=== PATIENT | female | born 1995 | race African-American/Black ===

== ENCOUNTER 2016-05-11 09:47 | Emergency (ER) | payer SELFPAY ==
[~2016-05-11] VITALS: Ht 165.1 cm; Wt 113.4 kg
--- NOTE | 2016-05-11 10:56 | PHYS DOC ---
Past Medical History Past Medical History: No Pertinent History Past Surgical History: Other Additional Past Surgical Histo: bilateral knee surgeries with bolts and plates Alcohol Use: None Drug Use: Marijuana Adult General Chief Complaint Chief Complaint: VAGINAL BLEEDING HPI HPI Patient is a 20 year old female who presents with lower abdominal pain and low back pain and setting of possible . Patient reports for the past 2 weeks she has had intermittent mild aching lower abdominal and lower back pain. She is not having any pain now. She also reports a small amount of vaginal bleeding today. She said she had an abnormal menstrual period starting on May 02. She took a test at home that was negative, and then a week later took another one that was positive (this was a few days ago). If she is indeed she would be with 1 prior miscarriage. She has not taken anything for symptoms. Review of Systems Review of Systems Constitutional: Denies fever or chills Eyes: Denies change in visual acuity or eye pain HENT: Denies nasal congestion or sore throat Respiratory: Denies cough or shortness of breath Cardiovascular: Denies chest pain GI: Lower abdominal pain. Denies nausea, vomiting, bloody stools or diarrhea : Vaginal bleeding. Denies dysuria or hematuria Musculoskeletal: Low back pain. Denies joint pain Integument: Denies rash or skin lesions Neurologic: Denies headache, focal weakness or sensory changes Allergies Allergies Allergies Coded Allergies Type Severity Reaction Last Updated Verified No Known Drug Allergies 02/08/14 No Physical Exam Physical Exam Constitutional: Well developed, well nourished, no acute distress, non-toxic appearance HENT: Normocephalic, atraumatic, bilateral external ears normal Eyes: EOMI, conjunctiva normal, no discharge Neck: Normal range of motion, no stridor Cardiovascular: Heart rate normal, regular rhythm, no murmur Lungs & Thorax: Bilateral breath sounds clear to auscultation Abdomen: Bowel sounds normal, soft, non-distended, no TTP : Scant dark blood in vault, no discharge, no CMT, no adnexal tenderness Skin: Warm, dry, no erythema, no rash Back: No tenderness Extremities: No obvious deformity, no edema Neurologic: Alert and oriented X 3, no gross deficits noted Current Patient Data Vital Signs Vital Signs Date Time Temp Pulse Resp B/P Pulse Ox O2 Delivery O2 Flow Rate FiO2 05/11/16 14:15 78 16 134/80 99 Room Air 05/11/16 10:05 98.3 98.3 Lab Values Laboratory Tests Test 05/11/16 11:10 05/11/16 11:20 05/11/16 11:27 Urine Collection Type Unknown Urine Color Yellow Urine Clarity Clear Urine pH 6.5 Urine Specific [place] 1.010 Urine Protein Negativemg/dL (NEG-TRACE) Urine Glucose (UA) Negativemg/dL (NEG) Urine Ketones (Stick) Negativemg/dL (NEG) Urine Blood Small (NEG) Urine Nitrite Negative (NEG) Urine Bilirubin Negative (NEG) Urine Urobilinogen Dipstick 1.0mg/dL (0.2 mg/dL) Urine Leukocyte Esterase Trace (NEG) Urine RBC Occ/HPF (0-2) Urine WBC Occ/HPF (0-4) Urine Squamous Epithelial Cells Mod/LPF Urine Bacteria Moderate/HPF (0-FEW) Urine Mucus Mod/LPF White Blood Count 5.3x10^3/uL (4.0-11.0) Red Blood Count 4.46x10^6/uL (3.50-5.40) Hemoglobin 12.6g/dL (12.0-15.5) Hematocrit 38.7% (36.0-47.0) Mean Corpuscular Volume 87fL (79-100) Mean Corpuscular Hemoglobin 28pg (25-35) Mean Corpuscular Hemoglobin Concent 33g/dL (31-37) Red Cell Distribution Width 13.9% (11.5-14.5) Platelet Count 288x10^3/uL (140-400) Neutrophils (%) (Auto) 52% (31-73) Lymphocytes (%) (Auto) 39% (24-48) Monocytes (%) (Auto) 7% (0-9) Eosinophils (%) (Auto) 1% (0-3) Basophils (%) (Auto) 1% (0-3) Neutrophils # (Auto) 2.8x10^3uL (1.8-7.7) Lymphocytes # (Auto) 2.0x10^3/uL (1.0-4.8) Monocytes # (Auto) 0.4x10^3/uL (0.0-1.1) Eosinophils # (Auto) 0.0x10^3/uL (0.0-0.7) Basophils # (Auto) 0.0x10^3/uL (0.0-0.2) POC Urine HCG, Qualitative Hcg negative (Negative) Maternal Serum HCG Beta Subunit < 1mIU/mL (0-6) Sodium Level 139mmol/L (136-145) Potassium Level 4.1mmol/L (3.5-5.1) Chloride Level 105mmol/L (98-107) Carbon Dioxide Level 26mmol/L (21-32) Anion Gap 8 (6-14) Blood Urea Nitrogen 10mg/dL (7-20) Creatinine 0.9mg/dL (0.6-1.0) Estimated GFR (Cockcroft-Gault) 96.6 BUN/Creatinine Ratio 11 (6-20) Glucose Level 91mg/dL (70-99) Calcium Level 9.1mg/dL (8.5-10.1) Total Bilirubin 0.8mg/dL (0.2-1.0) Aspartate Amino Transferase (AST) 15U/L (15-37) Alanine Aminotransferase (ALT) 21U/L (14-59) Alkaline Phosphatase 71U/L (46-116) Total Protein 8.0g/dL (6.4-8.2) Albumin 3.5g/dL (3.4-5.0) Albumin/Globulin Ratio 0.8 (1.0-1.7) L Laboratory Tests 05/11/16 11:20 Laboratory Tests 05/11/16 11:27 Microbiology 05/11/16 Wet Prep - Final, Complete 05/11/16 Urine Culture - Preliminary, Resulted 05/11/16 Urine Culture Result 1 (RAUL) - Preliminary, Resulted Microbiology 05/11/16 Wet Prep - Final, Complete EKG EKG [] Radiology/Procedures Radiology/Procedures Pelvic US: IMPRESSION: Thickened endometrium. However, no intrauterine gestational sac is seen at this point in time. This may represent a very early intrauterine (5 weeks or less) or a spontaneous . Therefore, recommend correlation with serial quantitative beta hCG studies. An ectopic has not been excluded. No free fluid or adnexal mass is seen otherwise. Course & Med Decision Making Course & Med Decision Making Pertinent Labs and Imaging studies reviewed. (See chart for details) Patient is 20-year-old female who presents with intermittent lower abdominal pain and lower back pain and setting of possible . Will check both urine and serum beta-hCG. Will also perform pelvic exam and obtain pelvic ultrasound. Patient declines need for acetaminophen at this time. Imaging results as above. Both urine and serum test negative. Discussed results with patient. Discussed need to follow-up with [employer]. Discharged with instructions for follow-up and return precautions. Dragon Disclaimer Dragon Disclaimer This electronic medical record was generated, in whole or in part, using a voice recognition dictation system. Departure Departure Impression: Primary Impression: Abnormal uterine bleeding Disposition: HOME, SELF-CARE Condition: STABLE Referrals: NO PCP (PCP) RODOLFO ISRAEL MD Patient Instructions: Abnormal Uterine Bleeding Additional Instructions: Thank you for allowing us to provide care today in the Emergency Department. Take the provided medication as directed. Schedule a follow up appointment with an ObGyn using the provided contact information. Return promptly to the Emergency Department if you develop any new or concerning symptoms. Scripts Naproxen 375 Mg [id number] Mg PO BID PRN PAIN #20 Prov:BJORN CARLISLE MD 05/11/16 BJORN CARLISLE MD May 11, 2016 10:56
[2016-05-11 11:29] LABS: BILIRUBIN,URINE NEGATIVE (NEG); GLUCOSE,URINE NEGATIVE (NEG); NITRITE,URINE NEGATIVE (NEG); PH,URINE 6.5; PROTEIN,URINE NEGATIVE (NEG-TRACE)
[2016-05-11 11:45] LABS: BACTERIA,URINE MODERATE /HPF (0-FEW); RBC,URINE OCC /HPF (0-2); SQUAMOUS EPITHELIAL CELL,UR MOD /LPF; WBC,URINE OCC /HPF (0-4)
[2016-05-11 11:49] LABS: CALCIUM 9.1 mg/dL (8.5-10.1); CREATININE 0.9 mg/dL (0.6-1.0); GFR 96.6; POTASSIUM 4.1 mmol/L (3.5-5.1)
[2016-05-11 11:49] LABS: BASO % 1 % (0-3); EOS % 1 % (0-3); HEMATOCRIT 38.7 % (36.0-47.0); HEMOGLOBIN 12.6 g/dL (12.0-15.5); LYMPH % 39 % (24-48); MEAN CORPUSCULAR HEMOGLOBIN 28 pg (25-35); MEAN CORPUSCULAR HGB CONC 33 g/dL (31-37); MEAN CORPUSCULAR VOLUME 87 fL (79-100); MONO % 7 % (0-9); NEUT % 52 % (31-73); PLATELET COUNT 288 x10^3/uL (140-400); RED BLOOD COUNT 4.46 x10^6/uL (3.50-5.40); RED CELL DISTRIBUTION WIDTH 13.9 % (11.5-14.5); WHITE BLOOD COUNT 5.3 x10^3/uL (4.0-11.0)
[2016-05-11 11:55] LABS: ALBUMIN 3.5 g/dL (3.4-5.0); ALBUMIN/GLOBULIN RATIO 0.8 (1.0-1.7); TOTAL BILIRUBIN 0.8 mg/dL (0.2-1.0)
--- NOTE | 2016-05-11 12:40 | RAD ---
Transabdominal sonography of the pelvis; OB ultrasound less than 14 weeks Clinical indications: Positive urine test. Vaginal bleeding. Findings: The uterus is anteverted in position. The longitudinal and AP and transverse dimensions of the uterus are 8.5 cm and 4.3 cm and 5.0 cm respectively. There is thickening of the endometrial canal measuring up to 20 mm. However no intrauterine gestational sac or fetus is seen at this point in time. The right ovary measures 2.4 cm and 2.5 cm and 2.2 cm in size and contains a 1.5 cm cyst. The left ovary measures 1.9 cm and 3.3 cm and 2.0 cm in size and is normal. No adnexal mass or free fluid is evident. IMPRESSION: Thickened endometrium. However, no intrauterine gestational sac is seen at this point in time. This may represent a very early intrauterine (5 weeks or less) or a spontaneous . Therefore, recommend correlation with serial quantitative beta hCG studies. An ectopic has not been excluded. No free fluid or adnexal mass is seen otherwise.
[2016-05-11] MEDS ORDERED: NAPR375T3 PO (13:53)
[2016-05-11 14:15] VITALS: BP 134/80
--- NOTE | 2016-05-13 16:29 | VNOTE ---
CALL BACK NOTE CALL BACK Microbiology 05/11/16 Wet Prep - Final, Complete 05/11/16 Urine Culture - Final, Complete 05/11/16 Urine Culture Result 1 (RAUL) - Final, Complete 05/11/16 Antimicrobic Susceptibility - Final, Complete Urine culture positive for infection. 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 Rx for Bactrim left at the front of the ED. TIM HELM APRN May 13, 2016 16:29
== END 2016-05-11 14:15 | disposition home or self-care (01) ==
LOC: ER 09:47
DX: N93.9 Abnormal uterine and vaginal bleeding, unspecified (principal); R10.30 Lower abdominal pain, unspecified; M54.5 Low back pain; F12.10 Cannabis abuse, uncomplicated
CPT/HCPCS: 36415; 76801; 80053; 81001; 81025; 84702; 85027; 86900; 86901; 87086; 87491; 87591; 99285; Q0111; 87186

== ENCOUNTER 2016-05-15 11:41 | Emergency (ER) | payer SELFPAY ==
[~2016-05-15] VITALS: Ht 165.1 cm; Wt 104.3 kg
[~2016-05-15 11:41] MED LIST: NAPR375T3 PO
[2016-05-15 12:11] LABS: BILIRUBIN,URINE SMALL (NEG); GLUCOSE,URINE NEGATIVE (NEG); NITRITE,URINE POSITIVE (NEG); PH,URINE 6.5; PROTEIN,URINE 100 mg/dL (NEG-TRACE)
[2016-05-15 12:25] LABS: BACTERIA,URINE MANY /HPF (0-FEW); RBC,URINE >40 /HPF (0-2); WBC,URINE OCC /HPF (0-4)
[2016-05-15 12:47] LABS: BASO % 1 % (0-3); EOS % 1 % (0-3); LYMPH # 1.9 x10^3/uL (1.0-4.8); LYMPH % 38 % (24-48); MEAN CORPUSCULAR HEMOGLOBIN 29 pg (25-35); MEAN CORPUSCULAR HGB CONC 32 g/dL (31-37); MEAN CORPUSCULAR VOLUME 88 fL (79-100); MONO % 8 % (0-9); NEUT % 52 % (31-73); PLATELET COUNT 253 x10^3/uL (140-400); RED BLOOD COUNT 3.86 x10^6/uL (3.50-5.40); RED CELL DISTRIBUTION WIDTH 13.6 % (11.5-14.5)
--- NOTE | 2016-05-15 12:48 | PHYS DOC ---
Past Medical History Past Medical History: No Pertinent History Past Surgical History: Other Additional Past Surgical Histo: bilateral knee surgeries with bolts and plates Alcohol Use: None Drug Use: None Social History Narrative: DENIES DRUG USE AT THIS TIME, HX MARIJUANA USE Adult General Chief Complaint Chief Complaint: VAGINAL BLEEDING HPI HPI This otherwise healthy 20-year-old female has ongoing vaginal bleeding since the . Patient was seen on the and had a negative urine and negative negative serum quantitative values for any . She had ultrasound that demonstrated a thickened endometrium but no gestational sac. She states since discharge she still having continued bleeding. She also claims mild suprapubic cramping. She denies any dizziness or lightheadedness. She denies any chest pain or shortness of breath. She states she's going through one pad approximately every other hour. She denies any dysuria or hematuria. Review of Systems Review of Systems Constitutional: Denies fever or chills [] Eyes: Denies change in visual acuity, redness, or eye pain [] HENT: Denies nasal congestion or sore throat [] Respiratory: Denies cough or shortness of breath [] Cardiovascular: No additional information not addressed in HPI [] GI: Denies abdominal pain, nausea, vomiting, bloody stools or diarrhea [] : Denies dysuria or hematuria [] Musculoskeletal: Denies back pain or joint pain [] Integument: Denies rash or skin lesions [] Neurologic: Denies headache, focal weakness or sensory changes [] Endocrine: Denies polyuria or polydipsia [] Allergies Allergies Allergies Coded Allergies Type Severity Reaction Last Updated Verified No Known Drug Allergies 02/08/14 No Physical Exam Physical Exam Constitutional: Well developed, well nourished, no acute distress, non-toxic appearance. [] HENT: Normocephalic, atraumatic, bilateral external ears normal, oropharynx moist, no oral exudates, nose normal. [] Eyes: PERRLA, EOMI, conjunctiva normal, no discharge. [] Neck: Normal range of motion, no tenderness, supple, no stridor. [] Cardiovascular:Heart rate regular rhythm, no murmur [] Lungs & Thorax: Bilateral breath sounds clear to auscultation [] Abdomen: Bowel sounds normal, soft, mild suprapubic tenderness, no masses, no pulsatile masses. [] Pelvic exam: Slightly open cervical os with noted bleeding that is ongoing. Skin: Warm, dry, no erythema, no rash. [] Back: No tenderness, no CVA tenderness. [] Extremities: No tenderness, no cyanosis, no clubbing, ROM intact, no edema. [] Neurologic: Alert and oriented X 3, normal motor function, normal sensory function, no focal deficits noted. [] Psychologic: Affect normal, judgement normal, mood normal. [] Current Patient Data Vital Signs Vital Signs Date Time Temp Pulse Resp B/P Pulse Ox O2 Delivery O2 Flow Rate FiO2 05/15/16 12:33 76 120/69 100 Room Air 05/15/16 11:55 98.2 18 98.2 Lab Values Laboratory Tests Test 05/15/16 11:54 05/15/16 11:58 05/15/16 12:30 Urine Collection Type Void Urine Color Red Urine Clarity Turbid Urine pH 6.5 Urine Specific [place] 1.025 Urine Protein 100mg/dL (NEG-TRACE) Urine Glucose (UA) Negativemg/dL (NEG) Urine Ketones (Stick) Tracemg/dL (NEG) Urine Blood Large (NEG) Urine Nitrite Positive (NEG) Urine Bilirubin Small (NEG) Urine Urobilinogen Dipstick 1.0mg/dL (0.2 mg/dL) Urine Leukocyte Esterase Moderate (NEG) Urine RBC >40/HPF (0-2) Urine WBC Occ/HPF (0-4) Urine Bacteria Many/HPF (0-FEW) POC Urine HCG, Qualitative Hcg negative (Negative) White Blood Count 5.0x10^3/uL (4.0-11.0) Red Blood Count 3.86x10^6/uL (3.50-5.40) Hemoglobin 11.0g/dL (12.0-15.5) L Hematocrit 34.0% (36.0-47.0) L Mean Corpuscular Volume 88fL (79-100) Mean Corpuscular Hemoglobin 29pg (25-35) Mean Corpuscular Hemoglobin Concent 32g/dL (31-37) Red Cell Distribution Width 13.6% (11.5-14.5) Platelet Count 253x10^3/uL (140-400) Neutrophils (%) (Auto) 52% (31-73) Lymphocytes (%) (Auto) 38% (24-48) Monocytes (%) (Auto) 8% (0-9) Eosinophils (%) (Auto) 1% (0-3) Basophils (%) (Auto) 1% (0-3) Neutrophils # (Auto) 2.6x10^3uL (1.8-7.7) Lymphocytes # (Auto) 1.9x10^3/uL (1.0-4.8) Monocytes # (Auto) 0.4x10^3/uL (0.0-1.1) Eosinophils # (Auto) 0.0x10^3/uL (0.0-0.7) Basophils # (Auto) 0.0x10^3/uL (0.0-0.2) Laboratory Tests 05/15/16 12:30 EKG EKG [] Radiology/Procedures Radiology/Procedures [] Course & Med Decision Making Course & Med Decision Making Pertinent Labs and Imaging studies reviewed. (See chart for details) This 20-year-old female will have CBC drawn to rule out any new changes with her hemoglobin level with her ongoing vaginal bleeding. I will be performing a pelvic exam as well. I will reconfirm today that she is not . She did state that she had a positive test at home so her vaginal bleeding could be due to a miscarriage. I will assess her cervix for any abnormal findings. I see no indication at this time to perform and repeat ultrasound as her last ultrasound did not demonstrate any findings other than a thickened endometrium. She was instructed to follow-up with a consumer insights intern last time and I will again be stressing this to her. Pelvic exam reveals continued bleeding from the cervical os. I discussed the need for the patient to obtain close follow-up with Dr. Che the consumer insights intern next several days. He stated the patient should be placed on iron supplementation and vitamins. I will also be prescribing her a course of antibiotic therapy for her urinary tract infection. Patient is not tachycardic and has quickly normal vital signs upon discharge. I advised her to come back if she has any worsening of her bleeding or develops any shortness of breath or dizziness. She is discharged without incident. Dragon Disclaimer Dragon Disclaimer This electronic medical record was generated, in whole or in part, using a voice recognition dictation system. Departure Departure Impression: Primary Impression: Abnormal uterine bleeding Additional Impression: UTI (urinary tract infection) Disposition: HOME, SELF-CARE Referrals: AMEENA CHE Jr, MD Patient Instructions: Uterine Bleeding, Dysfunctional, [id number] Additional Instructions: Please follow up with the OB doctor, Dr. Che, as instructed in the next 1-2 days. Return to the ER if you develop any shortness of breath or dizziness/ lightheadedness or any increase in bleeding. Take your medications as prescribed. Scripts Vits W-Ca,Fe,Fa(<1MG) ( Vitamins)1 Each Tablet1 Each PO DAILY # 10 Prov:JONY FOREMAN DO 05/15/16 Nitrofurantoin Monohyd/M-Cryst (Macrobid 100 Mg Capsule)100 Mg Capsule1 Cap PO BID #10 CAP Prov:JONY FOREMAN DO 05/15/16 Ferrous Sulfate 325 Mg [id number] Mg PO DAILY #10 Prov:JONY FOREMAN DO 05/15/16 Problem Qualifiers JONY FOREMAN DO May 15, 2016 12:48
[2016-05-15] MEDS ORDERED: NITR100C62 PO (13:36)
[2016-05-15] MEDS ORDERED: FERR-26 PO (13:36)
[2016-05-15] MEDS ORDERED: PREN1TAB58 PO (13:36)
[2016-05-15 13:51] VITALS: BP 129/81
--- NOTE | 2016-05-16 16:37 | VNOTE ---
CALL BACK NOTE CALL BACK Microbiology 05/15/16 Urine Culture - Preliminary, Resulted 05/15/16 Urine Culture Result 1 (RAUL) - Preliminary, Resulted Culture positive for Chlamydia, negative for Gonorrhea. Spoke with patient and Rx left at triage per patient request MARYURI MENDOZA APRN May 16, 2016 16:37
== END 2016-05-15 13:52 | disposition home or self-care (01) ==
LOC: ER 11:41
DX: N39.0 Urinary tract infection, site not specified (principal); N93.9 Abnormal uterine and vaginal bleeding, unspecified; F12.10 Cannabis abuse, uncomplicated; Z98.890 Other specified postprocedural states
CPT/HCPCS: 36415; 81001; 81025; 85027; 87086; 87186; 99284

== ENCOUNTER 2021-01-03 10:51 | Emergency (ER) | payer SELFPAY ==
[~2021-01-03] VITALS: Ht 167.6 cm; Wt 101.2 kg
[~2021-01-03 10:51] MED LIST changes: +FERR325T14 PO; +NAPR-695 PO; -NAPR375T3 PO; +NITR100C62 PO; +PREN1TAB58 PO
[2021-01-03 11:03] VITALS: BP 130/61
--- NOTE | 2021-01-03 11:19 | ED.ADGEN ---
Past Medical History Past Medical History: No Pertinent History Past Surgical History: Other Additional Past Surgical Histo: bilateral knee surgeries with bolts and plates Smoking Status: Never Smoker Alcohol Use: None Drug Use: None General Adult EDM: Chief Complaint: Congestion HPI: HPI: Patient is a 25-year-old female who arrives ambulatory to the emergency department complaint of 2-day history of cough with cold and congestion. Patient reports this is been ongoing now for 2 days and she has coughing fits which induced vomiting. Patient states in addition she has considerable congestion of her sinuses. Patient states in addition to this she is experienced chills and body aches. Patient states she was likely exposed to somebody who had a similar illness over the weekend however she has been inside since Saturday and continue to worsen. Despite this, the patient denies any history of chest pain or shortness of air. She further states she has not taken the coronavirus vaccines however she is giving this serious thought at this time. She is awake, alert and nontoxic-appearing Review of Systems: Review of Systems: Constitutional: Denies fever or chills. [] Eyes: Denies change in visual acuity. [] HENT: Reports nasal congestion and left ear discomfort. Denies sore throat. [] Respiratory: Reports cough. Denies shortness of breath. [] Cardiovascular: Denies chest pain or edema. [] GI: Reports vomiting. Denies abdominal pain, nausea, bloody stools or diarrhea. [] : Denies dysuria. [] Musculoskeletal: Reports body aches. Denies back pain or joint pain. [] Integument: Denies rash. [] Neurologic: Denies headache, focal weakness or sensory changes. [] Endocrine: Denies polyuria or polydipsia. [] Lymphatic: Denies swollen glands. [] Psychiatric: Denies depression or anxiety. [] Family History: Family History: Noncontributory Allergies: Allergies: Allergies Coded Allergies Type Severity Reaction Last Updated Verified No Known Drug Allergies 02/08/14 No Physical Exam: PE: Constitutional: Well developed, well nourished, no acute distress, non-toxic appearance. [] HENT: Normocephalic, atraumatic, bilateral external ears normal, oropharynx moist, no oral exudates, nose normal. [] Eyes: PERRLA, EOMI, conjunctiva normal, no discharge. [] Neck: Normal range of motion, no tenderness, supple, no stridor. [] Cardiovascular:Heart rate regular rhythm, no murmur [] Lungs & Thorax: Bilateral breath sounds clear to auscultation [] Abdomen: Bowel sounds normal, soft, no tenderness, no masses, no pulsatile masses. [] Skin: Warm, dry, no erythema, no rash. [] Back: No tenderness, no CVA tenderness. [] Extremities: No tenderness, no cyanosis, no clubbing, ROM intact, no edema. [] Neurologic: Alert and oriented X 3, normal motor function, normal sensory fun ction, no focal deficits noted. [] Psychologic: Affect normal, judgement normal, mood normal. [] Current Patient Data: Vital Signs: Vital Signs Date Time Temp Pulse Resp B/P (MAP) Pulse Ox O2 Delivery O2 Flow Rate FiO2 01/03/21 11:03 98.1 67 17 130/61 (84) 100 Room Air 98.1 EKG: EKG: [] Heart Score: C/O Chest Pain: No Risk Factors: Risk Factors: DM, Current or recent (<one month) smoker, HTN, HLP, family history of CAD, obesity. Risk Scores: Score 0 - 3: 2.5% MACE over next 6 weeks - Discharge Home Score 4 - 6: 20.3% MACE over next 6 weeks - Admit for Clinical Observation Score 7 - 10: 72.7% MACE over next 6 weeks - Early Invasive Strategies Radiology/Procedures: Radiology/Procedures: [] Course & Med Decision Making: Course & Med Decision Making Pertinent Labs and Imaging studies reviewed. (See chart for details) The patient remains awake, alert and in no acute distress. Patient does fit the constellation of symptoms that would likely predict possible Covid infection. Nonetheless the patient does have symptoms that would also mirror that of a traditional upper respiratory infection. I advised patient to quarantine until those results are returned as a relates to her Covid assay. Moreover advised that she return to the emergency department any new chest pain or shortness of air. The patient understands and has agreed to do so. She is nontoxic- appearing and resting comfortably. She stable for discharge. Dragon Disclaimer: Maggie Disclaimer: This electronic medical record was generated, in whole or in part, using a voice recognition dictation system. Departure Departure Impression: Primary Impression: Upper respiratory infection Additional Impression: Person under investigation for COVID-19 Disposition: HOME / SELF CARE / HOMELESS Condition: STABLE Referrals: NO PCP (PCP) Patient Instructions: Upper Respiratory Infection, Adult Scripts Benzonatate (TESSALON PERLE) 100 Mg Capsule 1 CAP PO TID for cough, #21 CAP Prov: CHARLOTTE FOLEY DO 01/03/21 Prednisone (PREDNISONE) 50 Mg Tablet 1 TAB PO DAILY for 5 Days, #5 TAB Prov: CHARLOTTE FOLEY DO 01/03/21 Albuterol Sulfate (PROAIR HFA INHALER) 8.5 Gm Hfa.aer.ad 2 PUFF IH PRN Q4-6HRS PRN for wheezing for 21 Days, #1 INHALER 0 Refills Prov: CHARLOTTE FOLEY DO 01/03/21 Problem Qualifiers CHARLOTTE FOLEY DO Jan 03, 2021 11:19
[2021-01-03] MEDS ORDERED: ALBU2.5V8 IH (11:32)
[2021-01-03] MEDS ORDERED: PRED50TA PO (11:32)
[2021-01-03] MEDS ORDERED: BENZ100C PO (11:32)
--- NOTE | 2021-01-03 15:17 | NUR ---
IP: Attempted to notify patient of negative COVID19 test result. Voicemail message left to please return call at number provided.
--- NOTE | 2021-01-04 07:57 | NUR ---
IP: Patient notified of negative COVID19 test result.
== END 2021-01-03 11:40 | disposition home or self-care (01) ==
LOC: ER 10:51
DX: J06.9 Acute upper respiratory infection, unspecified (principal); Z20.822 Contact with and (suspected) exposure to COVID-19
CPT/HCPCS: 87426; 99283; U0003; U0005

== ENCOUNTER 2021-05-27 08:35 | Emergency (ER) | payer OTHER ==
[~2021-05-27] VITALS: Ht 165.1 cm; Wt 90.9 kg
[~2021-05-27 08:35] MED LIST changes: +ALBU2.5V8 IH; +BENZ100C PO; +PRED50TA PO
[2021-05-27 08:50] VITALS: BP 129/75
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
[2021-05-27] MEDS ORDERED: ONDANSETRON ODT 4 MG TAB.RAPDIS. PO ONE (09:30)
[2021-05-27] MEDS ORDERED: ORPHENADRINE CITRATE 60 MG/2 ML VIAL. IM ONE (10:30)
[2021-05-27] MEDS ORDERED: KETOROLAC 60 MG/2 ML VIAL. IM ONE (10:30)
[2021-05-27] MEDS ORDERED: ONDA4TAB12 PO (11:07)
[2021-05-27] MEDS ORDERED: CYCL10TA19 PO (11:07)
[2021-05-27] MEDS ORDERED: IBUP-1007 PO (11:07)
[2021-05-27] MEDS ORDERED: HYDR-2761 PO (11:07)
== END 2021-05-27 11:15 | disposition home or self-care (01) ==
LOC: ER 08:35
DX: S00.83XA Contusion of other part of head, initial encounter (principal); R11.2 Nausea with vomiting, unspecified; V49.49XA Driver injured in collision with other motor vehicles in traffic accident, initial encounter; Y92.488 Other paved roadways as the place of occurrence of the external cause; Y93.89 Activity, other specified; Y99.8 Other external cause status
CPT/HCPCS: 81025; 96372; 99284; J1885; J2360